=== PATIENT | female | born 1960 | race Caucasian/White ===

== ENCOUNTER 2019-11-13 15:54 | Emergency (ER) | payer SELFPAY ==
[~2019-11-13] VITALS: Ht 170.2 cm; Wt 72.6 kg
[2019-11-13 16:00] VITALS: BP_SYST 164
--- NOTE | 2019-11-13 16:00 | NUR ---
# 20 gauge angiocath placed to . Use of asceptic technique. Opsite placed over site. Blood return noted. Blood and blood cultures for lab drawn from site. Flushed with 10 cc of normal saline. No evidence of infiltration noted. Patient tolerated well.
--- NOTE | 2019-11-13 16:00 | NUR ---
Patient to ER bed 7 to gown for evaluation. Side rails up. Report given to Christine BLOOM.
--- NOTE | 2019-11-13 16:01 | NUR ---
Patient from home ambulated to bedside. Complains of shortness of breath since yesterday. Patient is able to speak two to three words, has wheezing bilaterally. Hx of asthma. O2 sat upon arrival was 92% on room air. Patient reports "flourescent yellow phlegm". Patient reports pain in chest when unable to breath, rates it at 9 out of 10. No other complaints/injuries per patient or as noted.
--- NOTE | 2019-11-13 16:05 | NUR ---
OLGA LIDIA Ramirez at bedside examining patient.
[2019-11-13] MEDS ORDERED: BUDESONIDE 0.5 MG/2 ML AMPUL.NEB INH ONE (16:15)
[2019-11-13] MEDS ORDERED: IPRATROPIUM/ALBUTEROL SULFATE 3 ML AMPUL.NEB (DUONEB) INH ONE (16:15)
[2019-11-13] MEDS ORDERED: methylPREDNISolone SOD SUCC/PF 62.5 MG/ML VIAL IVP ONE (16:15)
[2019-11-13] MEDS ORDERED: MAGNESIUM SULFATE 1 GM/2 ML VIAL IVP ONE (16:15)
[2019-11-13 16:34] LABS: BASOPHILS # (AUTO) 0.1 K/uL (0.0-0.2); BASOPHILS % (AUTO) 0.9 % (0.0-2.0); EOSINOPHILS # (AUTO) 0.6 K/uL (0.0-0.4); EOSINOPHILS % (AUTO) 5.9 % (0.0-4.0); HEMATOCRIT 48.2 % (36-48); HEMOGLOBIN 15.9 g/dL (12.0-16.0); LYMPHOCYTES # (AUTO) 1.3 K/uL (1.0-5.5); LYMPHOCYTES % (AUTO) 13.1 % (20.5-51.5); MEAN CORPUSCULAR HEMOGLOBIN 28 pg (27-31); MEAN CORPUSCULAR HGB CONC 33 % (32-36); MEAN CORPUSCULAR VOLUME 85 fL (79.0-98.0); MONOCYTES # (AUTO) 0.6 K/uL (0.0-1.0); MONOCYTES % (AUTO) 5.8 % (1.7-9.3); NEUTROPHILS # (AUTO) 7.6 K/uL (1.8-7.7); NEUTROPHILS % (AUTO) 74.3 % (40.0-70.0); PLATELET COUNT (AUTO) 412 K/uL (130-430); RED BLOOD CELL COUNT(AUTO) 5.66 MIL/uL (4.2-6.2); RED CELL DISTRIBUTION WIDTH 14.2 % (9.0-15.0); WHITE BLOOD COUNT (AUTO) 10.2 K/uL (4.8-10.8)
--- NOTE | 2019-11-13 16:37 | NUR ---
First breathing treatment completed. O2 saturation is now 99% on room air. Patient reports "feeling better".
[2019-11-13 16:44] LABS: CALCIUM 9.4 mg/dL (8.4-11.0); CREATININE 0.65 mg/dL (0.55-1.30); POTASSIUM 3.5 mmol/L (3.5-5.1)
[2019-11-13 16:50] LABS: ALBUMIN 3.9 g/dL (3.4-4.8); TOTAL BILIRUBIN 0.4 mg/dL (0.0-1.0)
[2019-11-13] MEDS ORDERED: ALBUTEROL SULFATE 0.083% 2.5 MG/3 ML VIAL.NEB INH ONE (17:00)
--- NOTE | 2019-11-13 17:58 | NUR ---
Dr. Montero at bedside reassessing.
[2019-11-13 18:20] VITALS: BP_SYST 137
--- NOTE | 2019-11-13 18:20 | NUR ---
Patient given written and verbal discharge instructions and verbalizes understanding. ER MD Montero discussed with patient the results and treatment provided. Patient in stable condition. ID arm band removed. IV catheter removed intact and dressing applied, no active bleeding. Rx of Prednisone and Albuterol given. Patient educated on pain management and to follow up with PMD. Pain Scale 0/10. Opportunity for questions provided and answered. Medication side effect fact sheet provided.
== END 2019-11-13 18:20 | disposition home or self-care (01) ==
LOC: SED 15:54
DX: J45.901 Unspecified asthma with (acute) exacerbation (principal); I10 Essential (primary) hypertension; Z88.0 Allergy status to penicillin
CPT/HCPCS: 36415; 71045; 80053; 82803; 83605; 85025; 86710; 87040; 94640; 96365; 96375; 99285; J2930; J3475; J7613; J7626

== ENCOUNTER 2020-05-11 10:54 | Emergency (ER) | payer BC ==
[~2020-05-11] VITALS: Ht 170.2 cm; Wt 72.6 kg
[2020-05-11 10:55] VITALS: BP_SYST 146
[2020-05-11] MEDS: NACL 0.9% 1,000 ML IV ONE (11:16)
[2020-05-11] MEDS: methylPREDNISolone SOD SUCC/PF 62.5 MG/ML VIAL IVP ONE (11:17)
[2020-05-11] MEDS: ALBUTEROL SULFATE 0.083% 2.5 MG/3 ML VIAL.NEB INH ONE (11:21)
[2020-05-11] MEDS: IPRATROPIUM BROM 0.5 MG/2.5 ML VIAL.NEB (ATROVENT) INH ONE (11:22)
[2020-05-11 12:05] LABS: BASOPHILS # (AUTO) 0.1 K/uL (0.0-0.2); BASOPHILS % (AUTO) 0.8 % (0.0-2.0); EOSINOPHILS # (AUTO) 0.9 K/uL (0.0-0.4); EOSINOPHILS % (AUTO) 9.8 % (0.0-4.0); HEMOGLOBIN 15.5 g/dL (12.0-16.0); LYMPHOCYTES % (AUTO) 21.7 % (20.5-51.5); MEAN CORPUSCULAR HEMOGLOBIN 29 pg (27-31); MEAN CORPUSCULAR HGB CONC 34 % (32-36); MEAN CORPUSCULAR VOLUME 85 fL (79.0-98.0); MONOCYTES # (AUTO) 0.7 K/uL (0.0-1.0); MONOCYTES % (AUTO) 7.5 % (1.7-9.3); NEUTROPHILS # (AUTO) 5.4 K/uL (1.8-7.7); NEUTROPHILS % (AUTO) 60.2 % (40.0-70.0); PLATELET COUNT (AUTO) 387 K/uL (130-430); RED BLOOD CELL COUNT(AUTO) 5.43 MIL/uL (4.2-6.2); RED CELL DISTRIBUTION WIDTH 13.9 % (9.0-15.0)
[2020-05-11 12:12] LABS: CALCIUM 9.4 mg/dL (8.4-11.0); CREATININE 0.88 mg/dL (0.55-1.30); POTASSIUM 4.1 mmol/L (3.5-5.1)
[2020-05-11 12:18] LABS: ALBUMIN 3.4 g/dL (3.4-4.8); TOTAL BILIRUBIN 0.4 mg/dL (0.0-1.0)
[2020-05-11 12:37] VITALS: BP_SYST 146
== END 2020-05-11 12:37 | disposition home or self-care (01) ==
LOC: SED 10:54
DX: J45.901 Unspecified asthma with (acute) exacerbation (principal); Z88.0 Allergy status to penicillin
CPT/HCPCS: 36415; 71045; 80053; 84484; 85025; 93005; 94640; 96374; 99285; J2930; J7030; J7613